=== PATIENT | male | born 1985 | race African-American/Black ===

== ENCOUNTER 2019-02-04 20:35 | Emergency (ER) | payer OTHER, SELFPAY ==
[~2019-02-04] VITALS: Ht 162.6 cm; Wt 104.3 kg
[2019-02-04] MEDS ORDERED: AMOXICILLIN/K CLAV 875/125MG TABLET. PO ONE (21:15)
[2019-02-04 21:17] LABS: BASO # 0.1 x10^3/uL (0.0-0.2); BASO % 1 % (0-3); EOS # 0.3 x10^3/uL (0.0-0.7); EOS % 4 % (0-3); HEMATOCRIT 36.5 % (39.0-53.0); HEMOGLOBIN 12.2 g/dL (13.0-17.5); LYMPH # 2.6 x10^3/uL (1.0-4.8); LYMPH % 43 % (24-48); MEAN CORPUSCULAR HEMOGLOBIN 28 pg (25-35); MEAN CORPUSCULAR HGB CONC 33 g/dL (31-37); MEAN CORPUSCULAR VOLUME 84 fL (79-100); MONO # 0.4 x10^3/uL (0.0-1.1); MONO % 7 % (0-9); NEUT # 2.8 x10^3uL (1.8-7.7); NEUT % 46 % (31-73); PLATELET COUNT 321 x10^3/uL (140-400); RED BLOOD COUNT 4.33 x10^6/uL (4.30-5.70); RED CELL DISTRIBUTION WIDTH 16.3 % (11.5-14.5); WHITE BLOOD COUNT 6.1 x10^3/uL (4.0-11.0)
--- NOTE | 2019-02-04 21:19 | PHYS DOC ---
Past Medical History Past Medical History: No Pertinent History Past Surgical History: Other Additional Past Surgical Histo: dental Alcohol Use: Occasionally Drug Use: None Adult General Chief Complaint Chief Complaint: ALTERED MENTAL STATUS HPI HPI Patient is a 33 year old m chris was kicked off a bus due to confusion. apparently he tells me he stays at the [facility] in [facility] to is homeless. does use meth and mj. says last use 3 days ago. was at the [employer] [facility]art[facility] got on a bus and got kicked off at [facility] near here in [facility], does not remember getting on [employer]. Has had some mild ear pressure and fullness for the last few days no fever no headache no chest pain no abdominal pain no vomiting he feels well he knows that he stays at the [facility] in [facility] he knows that he is homeless he knows that he is not on any daily medications he tells me he thinks it's November he denies history of schizophrenia. Review of Systems Review of Systems Constitutional: Denies fever or chills [] Neurologic: Denies headache, focal weakness or sensory changes All other systems were reviewed and found to be within normal limits, except as documented in this note. Current Medications Current Medications Current Medications Medications (Trade) Dose Ordered Sig/Rip Start Time Stop Time Status Last Admin Dose Admin Amoxicillin/ Clavulanate Potassium (Augmentin 875/ 125mg) 1 tab 1X ONCE 02/04/19 21:15 02/04/19 21:16 DC 02/04/19 21:42 1 TAB Allergies Allergies Allergies Coded Allergies Type Severity Reaction Last Updated Verified No Known Drug Allergies 12/14/14 No Physical Exam Physical Exam Constitutional: Well developed, well nourished, no acute distress, non-toxic appearance. [] HENT: Normocephalic, atraumatic, bilateral external ears normal, oropharynx moist, no oral exudates, nose normal. [] right tm erythema and bulging no mastoid ttp Eyes: PERRLA, EOMI, conjunctiva normal, no discharge. [] Neck: Normal range of motion, no tenderness, supple, no stridor. [] Cardiovascular:Heart rate regular rhythm, no murmur [] Lungs & Thorax: Bilateral breath sounds clear to auscultation [] Abdomen: Bowel sounds normal, soft, no tenderness, no masses, no pulsatile masses. [] Skin: Warm, dry, no erythema, no rash. [] Back: No tenderness, no CVA tenderness. [] Extremities: No tenderness, no cyanosis, no clubbing, ROM intact, no edema. Neurologic: Alert and oriented X 2, normal motor function, normal sensory function, no focal deficits noted. [] Psychologic: Affect normal, judgement normal, mood normal. [] calm and cooperative denies suicidailiyt Current Patient Data Vital Signs Vital Signs Date Time Temp Pulse Resp B/P (MAP) Pulse Ox O2 Delivery O2 Flow Rate FiO2 02/04/19 20:35 97.7 68 16 128/72 (90) 99 Room Air 97.7 Lab Values Laboratory Tests Test 02/04/19 20:57 02/04/19 21:07 Urine Opiates Screen Neg (NEG) Urine Methadone Screen Neg (NEG) Urine Barbiturates Neg (NEG) Urine Phencyclidine Screen Neg (NEG) Urine Amphetamine/Methamphetamine Neg (NEG) Urine Benzodiazepines Screen Neg (NEG) Urine Cocaine Screen Neg (NEG) Urine Cannabinoids Screen Pos (NEG) Urine Ethyl Alcohol Neg (NEG) White Blood Count 6.1 x10^3/uL (4.0-11.0) Red Blood Count 4.33 x10^6/uL (4.30-5.70) Hemoglobin 12.2 g/dL (13.0-17.5) L Hematocrit 36.5 % (39.0-53.0) L Mean Corpuscular Volume 84 fL (79-100) Mean Corpuscular Hemoglobin 28 pg (25-35) Mean Corpuscular Hemoglobin Concent 33 g/dL (31-37) Red Cell Distribution Width 16.3 % (11.5-14.5) H Platelet Count 321 x10^3/uL (140-400) Neutrophils (%) (Auto) 46 % (31-73) Lymphocytes (%) (Auto) 43 % (24-48) Monocytes (%) (Auto) 7 % (0-9) Eosinophils (%) (Auto) 4 % (0-3) H Basophils (%) (Auto) 1 % (0-3) Neutrophils # (Auto) 2.8 x10^3uL (1.8-7.7) Lymphocytes # (Auto) 2.6 x10^3/uL (1.0-4.8) Monocytes # (Auto) 0.4 x10^3/uL (0.0-1.1) Eosinophils # (Auto) 0.3 x10^3/uL (0.0-0.7) Basophils # (Auto) 0.1 x10^3/uL (0.0-0.2) Sodium Level 140 mmol/L (136-145) Potassium Level 3.9 mmol/L (3.5-5.1) Chloride Level 105 mmol/L (98-107) Carbon Dioxide Level 28 mmol/L (21-32) Anion Gap 7 (6-14) Blood Urea Nitrogen 12 mg/dL (8-26) Creatinine 1.0 mg/dL (0.7-1.3) Estimated GFR (Cockcroft-Gault) 105.5 BUN/Creatinine Ratio 12 (6-20) Glucose Level 107 mg/dL (70-99) H Calcium Level 8.8 mg/dL (8.5-10.1) Total Bilirubin 0.1 mg/dL (0.2-1.0) L Aspartate Amino Transferase (AST) 17 U/L (15-37) Alanine Aminotransferase (ALT) 21 U/L (16-63) Alkaline Phosphatase 84 U/L (46-116) Total Protein 6.2 g/dL (6.4-8.2) L Albumin 3.3 g/dL (3.4-5.0) L Albumin/Globulin Ratio 1.1 (1.0-1.7) Ethyl Alcohol Level < 10 mg/dL (0-10) Laboratory Tests 02/04/19 21:07 Laboratory Tests 02/04/19 21:07 EKG EKG Normal sinus rhythm rate of 54 no acute ischemic changes noted interpreted by me time of encounter[] Radiology/Procedures Radiology/Procedures [] Course & Med Decision Making Course & Med Decision Making Pertinent Labs and Imaging studies reviewed. (See chart for details) []33-year-old male history of methamphetamine and marijuana apparently was found on a bus not get there does admit to recent meth use he says a few days ago unknown exactly when he is basically alert almost oriented didn't get the month but knows he is in [place] his homeless [place] [facility] he is calm and cooperative vitals look good does have evidence of right acute otitis media no mastoid tenderness neuro intact neck supple no fever check labs head CT chest x-ray I don't think that this patient has meningitis I think he probably has some transient disorientation related to drug abuse. Plus or minus may be underlying schizophrenia that he does not admit to or know about but he does not appear acutely disorganized he is not suicidal and she can be okay for discharge home after labs and CT scan. ON RE-EVALUATION KNOWS ITS MAY RECOGNIZES ME, HE CAN SUMARIZE OUR RECENT CONVERSATION. HE KNOWS HE IS TO GO TO [facility]. POS CANNABIS, COULD BE SOME SEDATIVE EFFECT OR DISORIENTATION RELATED TO THAT THAT IS RESOLVING WELL. RX AMOX Dragon Disclaimer Dragon Disclaimer This electronic medical record was generated, in whole or in part, using a voice recognition dictation system. Departure Departure Impression: Primary Impression: Otitis media Disposition: 01 HOME, SELF-CARE Condition: STABLE Referrals: NON,STAFF (PCP) Scripts Amoxicillin (AMOXICILLIN) 875 Mg Tablet 1 TAB PO BID, #20 TAB Prov: LELIA VELASQUEZ MD 02/04/19 LELIA VELASQUEZ MD February 04, 2019 21:19
[2019-02-04 21:25] LABS: BARBITURATES NEG (NEG); BENZODIAZEPINES NEG (NEG); CANNABINOIDS POS (NEG); COCAINE NEG (NEG); METHADONE NEG (NEG); OPIATES NEG (NEG); PHENCYCLIDINE NEG (NEG)
[2019-02-04 21:26] LABS: CALCIUM 8.8 mg/dL (8.5-10.1); GFR 105.5; POTASSIUM 3.9 mmol/L (3.5-5.1)
[2019-02-04 21:26] LABS: AMPHETAMINE/METHAMPHETAMINE NEG (NEG)
[2019-02-04 21:32] LABS: ALBUMIN 3.3 g/dL (3.4-5.0); ALBUMIN/GLOBULIN RATIO 1.1 (1.0-1.7); TOTAL BILIRUBIN 0.1 mg/dL (0.2-1.0); TOTAL PROTEIN 6.2 g/dL (6.4-8.2)
--- NOTE | 2019-02-04 21:39 | RAD ---
CT HEAD WO CONTRAST Indication: ams, headache, no priors Exposure: One or more of the following individualized dose reduction techniques were utilized for this examination: 1. Automated exposure control 2. Adjustment of the mA and/or kV according to patient size 3. Use of iterative reconstruction technique. Technique: Standard imaging without intravenous contrast. Posterior fossa unremarkable. No evidence of acute intracranial hemorrhage, mass effect, midline shift or abnormal extra-axial fluid collection. Ventricles and sulci are symmetric. Mclean-white matter distinction is intact. Mild ethmoid sinus mucosal thickening. Minimal mucosal thickening or mucous retention cyst left sphenoid sinus. No acute skull abnormality. IMPRESSION: No evidence of acute intracranial hemorrhage or mass effect. Electronically signed by: Juancarlos Carpenter MD (02/04/2019 9:36 PM) [facility]
[2019-02-04] MEDS ORDERED: AMOX875T PO (21:46)
[2019-02-04 22:06] VITALS: BP 109/61
--- NOTE | 2019-02-04 23:45 | RAD ---
PROCEDURE: PORTABLE CHEST 1V CLINICAL INDICATION: ams, no priors COMPARISON: None FINDINGS: Heart is normal in size. Prominent pulmonary vasculature. No focal consolidation. No pneumothorax or pleural effusion. Visualized bony thorax within normal limits. IMPRESSION: Findings suggests pulmonary vascular congestion. Clinically correlate. Electronically signed by: Conrado Shin DO (02/04/2019 11:42 PM) [facility]
--- NOTE | 2019-02-05 06:57 | EKG ---
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
== END 2019-02-04 22:17 | disposition home or self-care (01) ==
LOC: ER 20:35
DX: H66.91 Otitis media, unspecified, right ear (principal); R41.0 Disorientation, unspecified; R51 Headache; Z59.0 Homelessness
CPT/HCPCS: 36415; 70450; 71045; 80053; 80307; 85025; 93005; 99285; G0480